=== PATIENT | female | born 1960 | race Caucasian/White ===

== ENCOUNTER 2020-10-04 18:13 | Emergency (ER) | payer OTHER ==
[~2020-10-04 18:13] MED LIST: ASPIRIN81 MG PO; ATORVASTATIN CA80 MG PO; BACLOFEN10 MG PO; FERROUS SULFAT325 M2 PO; METOPROLOL TART50 MG PO; OMEPRAZOLE20 MG PO; OMNICEF 300 MG300 MG PO; VANCOMYCIN HCL125 MG PO
[2020-10-04] MEDS ORDERED: IBUPROFEN600 MG PO (19:41)
[2020-10-04] MEDS ORDERED: LEVOFLOXACIN500 MG PO (19:41)
== END 2020-10-04 20:37 | disposition home or self-care (01) ==
LOC: ER1 18:13
DX: K04.7 Periapical abscess without sinus (principal); K02.9 Dental caries, unspecified; E66.9 Obesity, unspecified
CPT/HCPCS: 96372; 96374; 99283; J1885

== ENCOUNTER 2020-10-15 23:05 | Emergency (ER) | payer OTHER ==
[~2020-10-15 23:05] MED LIST changes: +IBUPROFEN600 MG PO; +LEVOFLOXACIN500 MG PO
[2020-10-16 01:53] LABS: RED BLOOD COUNT 4.76 M/UL (4.00-5.10); WHITE BLOOD COUNT 14.2 K/UL (4.5-11.0)
[2020-10-16 02:13] LABS: BUN/CREATININE RATIO 20 (0-10)
== END 2020-10-16 02:33 | disposition home or self-care (01) ==
LOC: ER1 23:05
PROVIDERS: Family Medicine
DX: R07.9 Chest pain, unspecified (principal); E78.5 Hyperlipidemia, unspecified; I10 Essential (primary) hypertension; F41.9 Anxiety disorder, unspecified; R73.9 Hyperglycemia, unspecified; Z79.899 Other long term (current) drug therapy
CPT/HCPCS: 71045; 80053; 82550; 82553; 83874; 84484; 85025; 93005; 99285

== ENCOUNTER 2020-10-30 22:15 | Emergency (ER) | payer OTHER ==
[2020-10-30 23:00] LABS: HEMOGLOBIN 13.7 gm/dl (12.3-15.3); RED BLOOD COUNT 4.64 M/UL (4.00-5.10); WHITE BLOOD COUNT 9.8 K/UL (4.5-11.0)
[2020-10-30 23:17] LABS: BUN/CREATININE RATIO 11 (0-10)
== END 2020-10-31 00:45 | disposition home or self-care (01) ==
LOC: ER1 22:15
PROVIDERS: Physician Assistant Medical
DX: I10 Essential (primary) hypertension (principal); E78.5 Hyperlipidemia, unspecified; E11.9 Type 2 diabetes mellitus without complications
CPT/HCPCS: 71045; 80053; 82550; 82553; 83874; 84484; 85025; 93005; 99284

== ENCOUNTER 2020-12-13 16:05 | Observation (INO) | payer OTHER ==
[~2020-12-13] VITALS: Ht 154.9 cm; Wt 135.7 kg
[2020-12-13 16:32] LABS: HEMOGLOBIN 13.4 gm/dl (12.3-15.3); RED BLOOD COUNT 4.54 M/UL (4.00-5.10); WHITE BLOOD COUNT 9.7 K/UL (4.5-11.0)
[2020-12-13 17:08] LABS: BUN/CREATININE RATIO 10 (0-10)
[2020-12-14 05:03] LABS: BUN/CREATININE RATIO 11 (0-10)
[2020-12-14] MEDS ORDERED: LISINOPRIL10 MG PO (14:49)
[2020-12-14] MEDS ORDERED: CARVEDILOL12.5 MG PO (14:49)
[2020-12-14] MEDS ORDERED: CATAPRES 0.1MG0.1 MG PO (14:49)
== END 2020-12-14 17:00 | disposition home or self-care (01) ==
LOC: ER1 16:05 → CDU 18:04 → PROG CARE 19:38
PROVIDERS: Emergency Medicine; ADMIT Internal Medicine
DX: I16.0 Hypertensive urgency (principal); E78.00 Pure hypercholesterolemia, unspecified; E11.9 Type 2 diabetes mellitus without complications; Z79.899 Other long term (current) drug therapy; Z79.82 Long term (current) use of aspirin; Z20.822 Contact with and (suspected) exposure to COVID-19
CPT/HCPCS: ECHO; 36415; 71045; 80048; 80053; 82550; 82553; 83036; 83735; 83874; 84439; 84443; 84484; 85025; 93005; 93306; 96374; 99285; G0378; J0360; U0002

== ENCOUNTER 2021-03-14 18:06 | Emergency (ER) | payer OTHER ==
[~2021-03-14 18:06] MED LIST changes: +CARVEDILOL12.5 MG PO; +CATAPRES 0.1MG0.1 MG PO; +LISINOPRIL10 MG PO
[2021-03-14 19:15] LABS: HEMOGLOBIN 14.2 gm/dl (12.3-15.3); RED BLOOD COUNT 4.87 M/UL (4.00-5.10); WHITE BLOOD COUNT 9.8 K/UL (4.5-11.0)
[2021-03-14 19:44] LABS: BUN/CREATININE RATIO 11 (0-10)
== END 2021-03-14 20:45 | disposition home or self-care (01) ==
LOC: ER1 18:06
PROVIDERS: Physician Assistant
DX: I10 Essential (primary) hypertension (principal); E78.5 Hyperlipidemia, unspecified; Z79.01 Long term (current) use of anticoagulants; Z88.5 Allergy status to narcotic agent
CPT/HCPCS: 71045; 80048; 82550; 82553; 83874; 84484; 85025; 93005; 99284

== ENCOUNTER 2021-06-27 21:13 | Emergency (ER) | payer OTHER ==
[2021-06-27 22:58] LABS: HEMOGLOBIN 14.1 gm/dl (12.3-15.3); RED BLOOD COUNT 4.95 M/UL (4.00-5.10); WHITE BLOOD COUNT 12.7 K/UL (4.5-11.0)
[2021-06-27 23:56] LABS: BUN/CREATININE RATIO 14 (0-10)
== END 2021-06-28 00:38 | disposition left against medical advice (07) ==
LOC: ER1 21:13
PROVIDERS: Physician Assistant
DX: R07.9 Chest pain, unspecified (principal); E11.9 Type 2 diabetes mellitus without complications; Z79.84 Long term (current) use of oral hypoglycemic drugs; I10 Essential (primary) hypertension; Z20.822 Contact with and (suspected) exposure to COVID-19; E78.5 Hyperlipidemia, unspecified; Z88.1 Allergy status to other antibiotic agents
CPT/HCPCS: 0240U; 71045; 80053; 82550; 82553; 83874; 83880; 84484; 85025; 85379; 85610; 85730; 93005; 99283